=== PATIENT | male | born 1985 | race Caucasian/White ===

== ENCOUNTER 2020-06-03 12:35 | Emergency (ER) | payer OTHER ==
[~2020-06-03] VITALS: Ht 177.8 cm; Wt 66.7 kg
[2020-06-03 12:42] VITALS: Ht 177.8 cm; Wt 66.7 kg
[2020-06-03 13:10] LABS: microscopic required? NO
[2020-06-03 13:42] LABS: urine erythrocyte NEGATIVE (NEGATIVE)
[2020-06-03 14:18] VITALS: BP 128/80
== END 2020-06-03 14:18 | disposition home or self-care (01) ==
LOC: ED 12:35
PROVIDERS: Emergency Medicine
DX: R30.0 Dysuria (principal); N48.89 Other specified disorders of penis; F15.10 Other stimulant abuse, uncomplicated

== ENCOUNTER 2020-06-04 13:15 | Emergency (ER) | payer OTHER ==
[~2020-06-04] VITALS: Ht 177.8 cm; Wt 66.7 kg
[2020-06-04 13:24] VITALS: Ht 177.8 cm; Wt 66.7 kg
[2020-06-04 16:28] LABS: BASOPHIL % 0.5 % (0-2); PLATELET COUNT 261 x10^3mcL (130-400); RED CELL DISTRIBUTION WIDTH 13.7 % (11.5-14.5)
[2020-06-04 16:39] LABS: CALCIUM 8.6 mg/dL (8.5-10.1); CARBON DIOXIDE 28.9 mmol/L (21-32); CHLORIDE SERUM 102 mmol/L (98-107); CREATININE SERUM 0.9 mg/dL (0.7-1.3); GFR1 > 60 mL/min; GLUCOSE SERUM 92 mg/dL (74-106); POTASSIUM SERUM 3.9 mmol/L (3.5-5.1); SODIUM SERUM 140 mmol/L (136-145)
[2020-06-04 17:13] VITALS: BP 126/76
== END 2020-06-04 17:13 | disposition home or self-care (01) ==
LOC: ED 13:15
PROVIDERS: Emergency Medicine
DX: F15.10 Other stimulant abuse, uncomplicated (principal); R53.1 Weakness
CPT/HCPCS: 82962